=== PATIENT | female | born 1975 | race African-American/Black ===

== ENCOUNTER 2018-12-17 09:25 | Emergency (ER) | payer OTHER ==
[~2018-12-17] VITALS: Ht 170.2 cm; Wt 65.0 kg
[2018-12-17 09:57] LABS: HEMATOCRIT 34.3 % (37.0-47.0); HEMOGLOBIN 10.5 g/dl (12.0-16.0); IMMATURE GRANULOCYTES 0.3 % (0.0-5.0); MEAN CELL VOLUME 76.9 fL CALC (80.0-100.0); MEAN CORPUSCULAR HGB 23.5 pG CALC (26.0-32.0); MEAN CORPUSCULAR HGB CONC 30.6 g/L CALC (32.0-36.0); NEUT# 3.53 thou/uL (2.00-7.15); RED BLOOD COUNT 4.46 mill/uL (4.20-5.60); RED CELL DISTRI WIDTH 17.8 % (11.5-15.5)
[2018-12-17 10:16] LABS: ANION GAP 15 (6-22 (CALC)); BUN 17 mg/dL (7-17); BUN/CREATININE RATIO 20 (12-20 (CALC)); CARBON DIOXIDE 25 mmol/l (22-30); CHLORIDE 104 mmol/l (95-108); CREATININE 0.9 mg/dL (0.5-1.0); GFR > 60 ML/MIN (>=60 (CALC)); GFR FOR AFR.AMER. > 60 ML/MIN (>=60 (CALC)); POTASSIUM 3.6 mmol/l (3.5-5.1); SODIUM 140 mmol/l (137-146)
[2018-12-17 12:15] VITALS: BP 120/71
== END 2018-12-17 12:15 | disposition left against medical advice (07) ==
LOC: ED 09:25
PROVIDERS: Family Medicine
DX: T75.4XXA Electrocution, initial encounter (principal); W86.8XXA Exposure to other electric current, initial encounter; Y92.512 Supermarket, store or market as the place of occurrence of the external cause; Z91.19 Patient's noncompliance with other medical treatment and regimen

== ENCOUNTER 2018-12-19 07:35 | Emergency (ER) | payer OTHER ==
[~2018-12-19] VITALS: Ht 170.2 cm; Wt 63.2 kg
[2018-12-19 09:34] VITALS: BP 120/77
== END 2018-12-19 09:35 | disposition home or self-care (01) ==
LOC: ED 07:35
DX: T75.4XXD Electrocution, subsequent encounter (principal); T23.002D Burn of unspecified degree of left hand, unspecified site, subsequent encounter; T22.012D Burn of unspecified degree of left forearm, subsequent encounter; W86.1XXD Exposure to industrial wiring, appliances and electrical machinery, subsequent encounter